=== PATIENT | female | born 2000 | race Caucasian/White ===

== ENCOUNTER 2019-06-24 15:12 | Emergency (ER) | payer MEDICAID, SELFPAY ==
[2019-06-24 15:32] VITALS: BP 125/69; PULSE 93; RESP 16; TEMP 36.8; O2SAT 100
--- NOTE | 2019-06-24 16:04 | ED.GENADULT ---
HPI - General Adult General Chief complaint: Dizziness Stated complaint: swollen foot dizzy lightheaded Time Seen by Provider: 06/24/19 16:04 Source: patient, family and RN notes reviewed Mode of arrival: ambulatory Limitations: no limitations History of Present Illness HPI narrative: 18 year old female accompanied by step mother with complaints of awakening this morning with her feet looking discolored, felt like room spinning and dizziness while lying down. Patient also states that she has had intermittent dizziness today. Patient is approximately 7-8 week and has [employer] appointment on the 02 of July. Patient states also that 2 days ago she had some lower abdominal discomfort and also yesterday intermittently but has not experienced any pain today, denies any vaginal discharge or any vaginal bleeding. Patient states she thinks she is still anemic did have miscarriage in April. Patient denies any burning with urination or nausea or vomiting or diarrhea states she thinks she is drinking enough fluids MD complaint: dizzy Onset (ago): hour(s) (since this morning) Radiation: non-radiation Quality: other (denies any present pain) Relieving factors: none Exacerbating factors: none Associated symptoms: other (dizziness) Treatments prior to arrival: none Related Data Home Medications Medication Instructions Recorded Confirmed 06/24/19 Allergies Allergy/AdvReac Type Severity Reaction Status Date / Time No Known Allergies Allergy Verified 06/24/19 15:34 Review of Systems Review of Systems: Narrative: CONSTITUTIONAL: Denies fever, chills, or sweats. EYES: Denies visual changes, redness, or discharge. ENT: Denies rhinorrhea, congestion, sore throat, or otalgia. CARDIOVASCULAR: Denies chest pain, palpitations, or edema. RESPIRATORY: Denies cough or dyspnea. GASTROINTESTINAL: Denies abdominal pain, nausea, vomiting, or diarrhea. GENITOURINARY: Denies dysuria or hematuria. SKIN: Denies rash or itching. MUSCULOSKELETAL: Denies back pain, joint pain, or myalgia.no edema NEUROLOGIC: Denies headache, numbness, or weakness.episodes of dizziness PSYCHIATRIC: Denies anxiety or depression. All systems reviewed & are unremarkable except as noted in HPI and below PMFSH Past Medical History Medical History (Updated 06/25/19 @ 00:00 by Guillaume Mccain) Miscarriage Social History Social History (Updated 06/29/19 @ 18:21 by Zuri Aguilar NP) Smoking status: Never smoker Living arrangements: with family Gender identity (if verbalized by the patient): Female Comments At time of signature, agree with nursing past medical, social history. There is no relevant family history pertinent to the presenting complaint Exam Narrative: Exam Narrative: GENERAL: Well-appearing, well-nourished, and in no acute distress. HEAD: Normocephalic, atraumatic. EYES: PERRLA and EOMI. ENT: Nares clear, no rhinorrhea or epistaxis. Mucous membranes moist.TM's normal with good light reflex, throat pink with no exudate or lesions, no tonsil enlargement or redness NECK: Supple.no lymphadenopathy CHEST: Clear to auscultation. No respiratory distress.SAO2 100% on room air HEART: Regular rate and rhythm. No murmur heard. Normal peripheral pulses.no edema ABDOMEN: Soft, nontender, nondistended, normal active bowel sounds. EXTREMITIES: Normal range of motion. No edema strong pedal and posterior pedal pulses, color is pale, feet warm and dry. SKIN: Warm, dry, no rash. NEURO: No focal deficits. Alert and oriented x3. Course Vital Signs Vital signs: Vital Signs Temperature 36.8 C 06/24/19 15:32 Pulse Rate 93 06/24/19 15:32 Respiratory Rate 16 06/24/19 15:32 Blood Pressure 125/69 06/24/19 15:32 Pulse Oximetry 100 06/24/19 15:32 Temperature 36.8 C 06/24/19 15:32 Pulse Rate 93 06/24/19 15:32 Respiratory Rate 16 06/24/19 15:32 Blood Pressure 125/69 06/24/19 15:32 Pulse Oximetry 100 0
--- NOTE | 2019-06-24 16:27 | PC.NURSE ---
NO UC ORDERED PER DARCIE
== END 2019-06-24 16:35 | disposition home or self-care (01) ==
PROVIDERS: Emergency Provider Registered Nurse
DX: O26.891 Other specified pregnancy related conditions, first trimester (principal); Z3A.01 Less than 8 weeks gestation of pregnancy; R42 Dizziness and giddiness
CPT/HCPCS: 81003; 81025; 99202; G0463

== ENCOUNTER 2020-01-28 10:18 | Emergency (ER) | payer OTHER, SELFPAY ==
[2020-01-28 11:32] VITALS: BP 147/81; PULSE 114; RESP 16; TEMP 36.9; O2SAT 98
--- NOTE | 2020-01-28 11:36 | ED.DENTAL ---
HPI - Dental/Oral General Chief complaint: Dental/Oral Stated complaint: jaw and neck apin Source: patient Mode of arrival: ambulatory Limitations: no limitations History of Present Illness HPI Narrative: this is a 19-year-old female with some chronic dental inflammation and dental caries that presents with a cracked tooth in the upper right molar area with surrounding gum inflammation with radiation into her right ear and her righ jaw with a tender right submandibular gland inflammation and tenderness with no fever chills no nausea vomiting no shortness of breath. MD Complaint: tooth pain Teeth map: 1. cracked tooth with surrounding gum inflammation and tenderness Onset (ago): day(s) Duration: constant Severity: moderate Severity scale (1-10): 8 Relieving factors: NSAIDs Exacerbating factors: chewing, cold, drinking fluids and swallowing Context: history of dental caries Associated symptoms: gum swelling Treatment prior to arrival: oral analgesic Related Data Allergies Allergy/AdvReac Type Severity Reaction Status Date / Time No Known Allergies Allergy Verified 08/20/19 12:47 Review of Systems Review of Systems: All systems reviewed & are unremarkable except as noted in HPI and below PMFSH Past Medical History Medical History Miscarriage Social History Social History Smoking status: Never smoker Gender identity (if verbalized by the patient): Female Exam Const: General: no acute distress and alert Orientation/consciousness: patient oriented x3 HENMT: Head: normal to inspection Eyes: Conjunctivae: conjunctivae normal Pupils: Equal, round and reactive pupils present EOM: EOMs intact bilaterally Neck: Neck: normal visual inspection Other: Tender right submandibular gland with palpation Right upper molar dental inflammation with a cracked tooth with surrounding gum inflammation and tenderness. Chest: Chest palpation & inspection: normal inspection of the chest Resp: Effort & Inspection: normal respiratory effort Cardio: Rate: regular rate Rhythm: regular rhythm GI: Inspection: distended Auscultation: normal bowel sounds : General: Yes no CVA tenderness Urinary Catheter: Urinary Catheter: patent and draining Back/Spine/Pelvis: Back: no CVA tenderness Skin: General skin exam: normal color Rashes: no rashes Extrem: General: normal to inspection Psych: Appearance: grossly normal Mental Status: mental status grossly normal Affect: normal affect Course Course Emergency Course: Advised patient to take medicine as prescribed and to follow-up with her dentist for further evaluation and treatment. Critical Care Time Critical Care Time Critical Care Time: No Discharge Plan Discharge Clinical Impression: Toothache, Dental abscess Fracture of tooth Qualifiers: Encounter type: initial encounter Fracture type: closed Qualified Code(s): S02.5XXA - Fracture of tooth (traumatic), initial encounter for closed fracture Patient Disposition: Home, Self-Care Condition: Stable Instructions: Antibiotic Form, Dental Abscess (ED), Toothache (ED) Additional Instructions: Take medicine as prescribed and follow-up dentist as soon as possible for further evaluation and treatment. Prescriptions: New amoxicillin 500 mg tablet 500 mg PO TID Qty: 30 RF: 0 tramadol [Ultram] 50 mg tablet 50 mg PO Q6H PRN (Reason: pain) Qty: 20 RF: 0 Follow-up/Referrals: Beatris,MEME Weinstein [Primary Care Provider] - Stand Alone Forms: Work/School Release IP Time of Disposition: 11:42
== END 2020-01-28 11:47 | disposition home or self-care (01) ==
PROVIDERS: Emergency Provider Emergency Medicine; PCP Physician Assistant
DX: K08.89 Other specified disorders of teeth and supporting structures (principal); K04.7 Periapical abscess without sinus
CPT/HCPCS: 99283

== ENCOUNTER 2021-01-05 18:19 | Emergency (ER) | payer OTHER, SELFPAY ==
[2021-01-05 18:28] VITALS: BP 119/76; PULSE 98; RESP 20; TEMP 36.5; O2SAT 100
--- NOTE | 2021-01-05 18:49 | ED.GENADULT ---
HPI - General Adult General Chief complaint: Unspecified Stated complaint: cough, tired, wants covid test Time Seen by Provider: 01/05/21 18:37 Source: patient Mode of arrival: ambulatory Limitations: no limitations History of Present Illness HPI narrative: This is a 20-year-old female that presents to the emergency department for cold symptoms x1 week. Reports cough, rhinorrhea, sore throat, and fatigue. She has not had the Covid vaccine. Does report a positive sick contact. Denies fever, chest pain, shortness of breath. Related Data Allergies Allergy/AdvReac Type Severity Reaction Status Date / Time No Known Allergies Allergy Verified 08/20/19 12:47 Review of Systems Review of Systems: CONSTITUTIONAL: Denies fever CARDIOVASCULAR: Denies chest pain or edema. RESPIRATORY: Reports cough. Denies dyspnea. GASTROINTESTINAL: Reports nausea. Denies vomiting All systems reviewed & are unremarkable except as noted in HPI and below PMFSH Past Medical History Medical History (Updated 01/05/21 @ 18:53 by Irena Chavez PA-C) Miscarriage Social History Social History (Updated 01/05/21 @ 18:50 by Irena Chavez PA-C) Smoking status: Never smoker Substance use: never Gender identity (if verbalized by the patient): Female Exam Narrative: GENERAL: Well-appearing, well-nourished, and in no acute distress. HEAD: Normocephalic, atraumatic. EYES: EOMI. ENT: Nares clear, no rhinorrhea or epistaxis. Mucous membranes moist. Oropharynx without tonsillar hypertrophy exudate or other lesions. Bilateral TMs pearly ott non-bulging NECK: Supple. No adenopathy or masses. CHEST: Clear to auscultation. No respiratory distress. No wheezes rales or rhonchi HEART: Regular rate and rhythm. No murmur heard. Normal peripheral pulses. EXTREMITIES: Normal range of motion. No edema. SKIN: Warm, dry, no rash. NEURO: No focal deficits. Alert and oriented x3. PSYCH: Normal mood and affect Course Vital Signs Vital signs: Vital Signs Temperature 97.7 F 01/05/21 18:28 Pulse Rate 98 01/05/21 18:28 Respiratory Rate 20 01/05/21 18:28 Blood Pressure 119/76 01/05/21 18:28 Pulse Oximetry 100 01/05/21 18:28 Temperature 97.7 F 01/05/21 18:28 Pulse Rate 98 01/05/21 18:28 Respiratory Rate 20 01/05/21 18:28 Blood Pressure 119/76 01/05/21 18:28 Pulse Oximetry 100 01/05/21 18:28 Medical Decision Making MDM Narrative Medical decision making narrative: Patient presents the emergency department for cold symptoms x1 week. She is afebrile and nontoxic-appearing. Oxygen saturation is 100% on room air. Lungs are clear on exam. SARS-CoV-2 was sent as patient is unvaccinated. She is stable and felt appropriate for further outpatient evaluation. Was instructed on continued care of viral infection. She is to follow-up with her primary care doctor. She was given warnings to return to the ER Vital Signs Vital Signs: Vital Signs Temperature 97.7 F 01/05/21 18:28 Pulse Rate 98 01/05/21 18:28 Respiratory Rate 20 01/05/21 18:28 Blood Pressure 119/76 01/05/21 18:28 Pulse Oximetry 100 01/05/21 18:28 Temperature 97.7 F 01/05/21 18:28 Pulse Rate 98 01/05/21 18:28 Respiratory Rate 20 01/05/21 18:28 Blood Pressure 119/76 01/05/21 18:28 Pulse Oximetry 100 01/05/21 18:28 Critical Care Time Critical Care Time Critical Care Time: No Discharge Plan Discharge Clinical Impression: Person under investigation for severe acute respiratory syndrome coronavirus 2 (SARS-CoV-2) infection Patient Disposition: Home, Self-Care Condition: Stable Instructions: COVID-19 (Coronavirus Disease 2019) (ED) Additional Instructions: Return to the emergency department for worsening symptoms, or any other concerns Remain well-hydrated, get plenty of rest. Take Tylenol or Motrin [id number] for pain as needed. Flonase for nasal congestion. Zyrtec for runny nose. Lozenges or Chloraseptic s
[2021-01-05 19:23] VITALS: BP 105/77; PULSE 94; RESP 16; TEMP 36.3; O2SAT 100
[2021-01-06 19:54] LABS: SARS-CoV-2 RNA PCR Positive
== END 2021-01-05 19:26 | disposition home or self-care (01) ==
PROVIDERS: Physician Assistant; Emergency Provider Emergency Medicine; PCP Physician Assistant
DX: U07.1 COVID-19 (principal)
CPT/HCPCS: 99283; C9803; U0003; U0005